=== PATIENT | female | born 1975 | race Caucasian/White ===

== ENCOUNTER 2016-05-22 08:44 | Emergency (ER) | payer OTHER ==
--- NOTE | 2016-05-22 08:47 | UCPHY ---
H & P Patient Type: New HPI/ROS: HPI CHIEF COMPLAINT: Left ear pain HISTORY OF PRESENT ILLNESS: This patient very pleasant 40-year-old female, denies any significant daily medical history except for depression, presents to the urgent care with left ear pain times less than 6 hours however she is due to get on a plane today and wanted to have her ear evaluated. She tells me it started hurting earlier this morning. Pain does radiate from her ear to the posterior pharynx on the left side sharp stabbing pain. Not worse when she moves her jaw. She has no throat pain when she swallows. Past Medical History: Depression Past Surgical History: Right knee surgery, sinus surgery Social History: Denies daily use of drugs alcohol tobacco products Family History: Noncontributory ROS REVIEW OF SYSTEMS: A comprehensive 10 point review of systems is otherwise negative aside from elements mentioned in the history of present illness. Exam Constitutional triage nursing summary reviewed, vital signs reviewed, awake/ alert. Eyes normal conjunctivae and sclera, EOMI, PERRLA. HENT bilateral TMs are clear, specifically the left TM there is no significant bulge or fluid behind appreciated, posterior pharynx normal normal inspection, atraumatic, moist mucus membranes, no epistaxis, neck supple/ no meningismus, no raccoon eyes. Respiratory clear to auscultation bilaterally, normal breath sounds, no respiratory distress, no wheezing. Cardiovascular rate normal, regular rhythm, no murmur, no edema, distal pulses normal. Gastrointestinal soft, non-tender, no rebound, no guarding, normal bowel sounds, no distension, no pulsatile mass. Genitourinary no CVA tenderness. Musculoskeletal no midline vertebral tenderness, full range of motion, no calf swelling, no tenderness of extremities, no meningismus, good pulses, neurovascularly intact. Skin pink, warm, & dry, no rash, skin atraumatic. Neurologic awake, alert and oriented x 3, AAOx3, moves all 4 extremities equally, motor intact, sensory intact, CN II-XII intact, normal cerebellar, normal vision, normal speech. Psychiatric normal mood/affect. Heme/Lymph/Immune no lymphadenopathy. Differential Diagnosis: Includes but is not limited to in a particular order, otalgia, otitis media, eustachian tube dysfunction Medical Decision Making: Do this patient getting rated fly today will place her on Mucinex D congestion, recommend ibuprofen for pain as well as azithromycin in case there is an inner ear infection and she is going to fly. She understands she develops drainage from here, worsening pain high fever vomiting she needs return emergency room urgent care. Source: Patient - Personal History Tetanus Vaccine Date: 2013 - Medical/Surgical History Hx Asthma: Yes Hx Chronic Respiratory Disease: No Hx Diabetes: No Hx Cardiac Disease: No Hx Renal Disease: No Hx Cirrhosis: No Hx Alcoholism: No Hx HIV/AIDS: No Hx Splenectomy or Spleen Trauma: No Other PMH: bipolar, depression, migraines, anxiety, ADHD - Family History Significant Family History: No pertinent family hx - Social History Smoking Status: Never smoked Constitutional: Initial Vital Signs Temperature (C) 36.6 C 05/22/16 08:56 Heart Rate 78 05/22/16 08:56 Respiratory Rate 28 H 05/22/16 08:56 Blood Pressure 170/120 H 05/22/16 08:56 O2 Sat (%) 97 05/22/16 08:56 O2 Delivery Mode Room Air Allergies/Adverse Reactions: acetaminophen [From Vicodin] Allergy (Verified 09/15/15 09:32) hydrocodone bitartrate [From Vicodin] Allergy (Verified 09/15/15 09:32) Penicillins Allergy (Verified 09/15/15 09:32) Home Medications: Medication Instructions Recorded Propranolol HCl 60 mg PO 02/28/12 Venlafaxine HCl [Venlafaxine 37.5 mg PO 02/28/12 37.5MG (RX)] Concerta 09/15/15 LaMICtal 09/15/15 Topamax 09/15/15 AZITHROMYCIN [Z-PACK] 250 mg PO DAILY #6 tab 05/22/16 Guaifenesin [Guaifenesin ER] 600 mg PO BID #14 tab.er.12h 05/22/16 Ibuprofen [Motrin (*)] 800 mg PO Q6-8PRN #7 tab 05/22/16 Departure - Departure Disposition: Home, Routine, Self-Care Clinical Impression: Otalgia Qualifiers: Laterality: left Qualified Code(s): H92.02 - Otalgia, left ear Condition: Good Instructions: Earache (ED) Additional Instructions: 1. Drink lots of fluids 2. Return to the urgent care or emergency room if he develops worsening pain fever vomiting or questions or concerns. Referrals: Wally Noel MD [Primary Care Provider] - As per Instructions Prescriptions: AZITHROMYCIN [Z-PACK] 250 mg PO DAILY #6 tab Guaifenesin [Guaifenesin ER] 600 mg PO BID #14 tab.er.12h Ibuprofen [Motrin (*)] 800 mg PO Q6-8PRN #7 tab - PQRS PQRS Measurement: n/a
[2016-05-22 08:59] VITALS: BP 170/120; PULSE 78; TEMP 98; O2SAT 97
[2016-05-22 09:23] VITALS: RESP 18
== END 2016-05-22 09:12 | disposition home or self-care (01) ==
LOC: CED 08:44
DX: H92.02 Otalgia, left ear (principal)
CPT/HCPCS: 99204-PO; G0463-PO